=== PATIENT | female | born 1990 | race Hispanic/Latino ===

== ENCOUNTER 2023-10-19 13:48 | Emergency (ER) | payer MEDICAID ==
[~2023-10-19] VITALS: Ht 160 cm; Wt 78.5 kg
[2023-10-19 14:28] LABS: BASOPHILS # (AUTO) 0.05 K/uL (0.00-0.20); BASOPHILS % (AUTO) 0.6 % (0.0-5.0); EOSINOPHILS # (AUTO) 0.02 K/uL (0.00-0.70); EOSINOPHILS % (AUTO) 0.2 % (0.0-8.0); HEMATOCRIT 45.4 % (36-48); IMMATURE GRANULOCYTE ABSOLUTE 0.02 K/uL (0-1); LYMPHOCYTES # (AUTO) 1.9 K/uL (1.0-4.8); LYMPHOCYTES % (AUTO) 22.3 % (21.0-51.0); MEAN CORPUSCULAR HEMOGLOBIN 28.1 pg (27.0-33.0); MEAN CORPUSCULAR HGB CONC 33.3 g/dL (32.0-36.0); MEAN CORPUSCULAR VOLUME 84.5 fL (79-99); MONOCYTES # (AUTO) 0.5 K/uL (0.1-1.0); MONOCYTES % (AUTO) 6.2 % (3.0-13.0); NEUTROPHILS # (AUTO) 6.1 K/uL (1.8-7.7); NEUTROPHILS % (AUTO) 70.5 % (40.0-77.0); PLATELET COUNT (AUTO) 287 K/uL (130-400); RED BLOOD CELL COUNT(AUTO) 5.37 MIL/uL (4.00-5.50); WHITE BLOOD COUNT (AUTO) 8.7 K/uL (4.8-10.8)
[2023-10-19 14:46] LABS: APPEARANCE,URINE CLEAR (CLEAR); BILIRUBIN,URINE NEGATIVE (NEGATIVE); COLOR,URINE YELLOW (YELLOW); GLUCOSE, URINE (UA) NEGATIVE (NEGATIVE); KETONES,URINE 150 mg/dL (NEGATIVE); LEUKOCYTE ESTERASE ,URINE 75 Leu/uL (NEGATIVE); NITRATE,URINE NEGATIVE (NEGATIVE); OCCULT BLOOD,URINE NEGATIVE (NEGATIVE); PROTEIN,URINE 50 mg/dL (NEGATIVE)
[2023-10-19 14:47] LABS: ADD UA MICROSCOPIC YES
[2023-10-19 14:47] LABS: CREATININE 0.8 mg/dL (0.5-1.0); POTASSIUM 3.5 mmol/L (3.5-5.1)
[2023-10-19 14:49] LABS: BACTERIA,URINE RARE /HPF (None Seen); MUCUS,URINE MOD LPF (None Seen); RBC,URINE 0-1 /HPF (0-1); SQUAMOUS EPITHELIAL CELL,UR RARE /HPF (0-2)
[2023-10-19 14:51] LABS: HCG,QUALITATIVE URINE NEGATIVE (NEGATIVE)
[2023-10-19 14:52] LABS: ALBUMIN 4.4 g/dL (3.5-5.0); BILIRUBIN,TOTAL 0.7 mg/dL (0.2-1.0); TOTAL PROTEIN, SERUM 8.9 g/dL (6.0-8.3)
[2023-10-19] MEDS: ONDANSETRON 4MG INJ IVP ONE (15:26)
[2023-10-19] MEDS: 0.9%NACL 1000ML 1,000 ML IV ONE (15:26)
[2023-10-19] MEDS ORDERED: ONDA4TAB10 PO (16:08)
[2023-10-19] MEDS ORDERED: CEPH500B PO (16:08)
[2023-10-19 16:34] VITALS: BP 122/64; PULSE 88; RESP 18; O2SAT 100
== END 2023-10-19 16:40 | disposition home or self-care (01) ==
LOC: EDH 13:48
DX: N39.0 Urinary tract infection, site not specified (principal); Z90.49 Acquired absence of other specified parts of digestive tract
CPT/HCPCS: 99283; 96374; 96361; 80053; 83690; 85025; 87088; 83605; 81001; 81025; 36415; J7030; J2405